=== PATIENT | female | born 1990 | race Caucasian/White ===

== ENCOUNTER → 2020-04-25 | Outpatient (CLI) | payer BC, OTHER ==
[2020-04-26 12:17] LABS: SARS-CoV-2 MS2 Positive; SARS-CoV-2 N Gene Negative; SARS-CoV-2 S Gene Negative; SARS-CoV-2 orf1ab Negative
== END ==
LOC: SCSLAB 11:51
PROVIDERS: ATTEND Obstetrics & Gynecology
DX: Z01.812 Encounter for preprocedural laboratory examination (principal); Z11.59 Encounter for screening for other viral diseases
CPT/HCPCS: 87635; U0003

== ENCOUNTER 2020-04-29 16:35 | Inpatient (IN) | payer BC ==
[~2020-04-29 16:35] MED LIST: Bupivacaine/Epinephrine 0.25% 30 ML VIAL ONE; EPHEDRINE 25 MG/5 ML SYRINGE ONE
[2020-04-29] MEDS ORDERED: Butorphanol Tartrate 1 MG/ML VIAL SLOW IVP PRN (20:14)
[2020-04-29] MEDS ORDERED: hydrALAZINE 20 MG/ML VIAL SLOW IVP PRN (20:14)
[2020-04-29] MEDS ORDERED: NS w/ Oxytocin 10 units 500 ML IV SCH ×2 (20:14)
[2020-04-29] MEDS ORDERED: Promethazine HCl 25 MG/ML VIAL IM PRN (20:14)
[2020-04-29] MEDS ORDERED: Ondansetron PF 4 MG/2 ML Vial IVP PRN (20:14)
[2020-04-29] MEDS ORDERED: HYDROcodone/Acetaminophen 5/325 mg Tablet PO PRN ×2 (20:14)
[2020-04-29] MEDS ORDERED: Lidocaine 1% (PF) 30 ML VIAL SC PRN (20:14)
[2020-04-29] MEDS ORDERED: NS / Oxytocin 40 units/1000ml 1,000 ML IV PRN (20:14)
[2020-04-29] MEDS ORDERED: Ibuprofen 800 MG TAB PO PRN (20:14)
[2020-04-29 22:18] LABS: Hemoglobin 13.4 g/dL (12.0-16.0); Mean Corpuscular HGB CONC 35.4 g/dL (32.0-36.0); Mean Corpuscular Hemoglobin 33.8 pg (27.0-31.0); Mean Corpuscular Volume 95.6 fL (78.0-98.0); Mean Platelet Volume 7.5 fL (7.4-10.4); Platelet Count 172 thou/uL (130-400); RBC Distribution Width 11.6 % (11.5-14.5); Red Blood Cell (RBC) Count 3.96 mill/uL (4.20-5.40); White Blood Cell (WBC) Count 12.2 thou/uL (4.8-10.8)
[2020-04-29 22:56] LABS: Syphilis Antibody Nonreactive (Nonreactive); Syphilis Antibody Index 0.04 S/CO (<1.00 Non-Reactive)
[2020-04-29 23:11] LABS: HBSAg Index 0.14 S/CO (0-0.99); Hep B Surf Ag Non-Reactive S/CO (NonReactive)
[2020-04-30 01:55] VITALS: BMI 31.6
[2020-04-30] MEDS ORDERED: Penicillin G Potassium 5 MILL.UNITS in Sodium Chloride 0.9% 100 ML IVPB SCH (02:00)
[2020-04-30] MEDS ORDERED: Penicillin G Potassium 5 MILL.UNITS VIAL ONE (02:04)
[2020-04-30] MEDS: Lactated Ringer's 1,000 ML IV SCH ×2 (02:20→03:40)
[2020-04-30] MEDS ORDERED: Misoprostol 100 MCG TAB VAG SCH (02:30)
[2020-04-30] MEDS ORDERED: Fentanyl 4 mcg/Bup 0.1% Cadd 100 ML ONE ×2 (02:30→10:48)
[2020-04-30] MEDS ORDERED: Lactated Ringer's 500 ML IV PRN (03:28)
[2020-04-30] MEDS ORDERED: Acetaminophen 325 MG TAB PO PRN (03:28)
[2020-04-30] MEDS ORDERED: Naloxone HCl 0.4 mg/ml Vial IVP PRN ×2 (03:28)
[2020-04-30] MEDS ORDERED: Ondansetron PF 4 MG/2 ML Vial IVP PRN ×2 (03:28→17:11)
[2020-04-30] MEDS ORDERED: EPHEDRINE 25 MG/5 ML SYRINGE SLOW IVP PRN (03:28)
[2020-04-30] MEDS ORDERED: diphenhydrAMINE 50 MG/ML VIAL IVP PRN (03:28)
[2020-04-30] MEDS ORDERED: Promethazine HCl 25 MG/ML VIAL IM PRN (03:28)
[2020-04-30] MEDS ORDERED: Communication Order-Pharmacy FS SCH (03:30)
[2020-04-30] MEDS ORDERED: Fentanyl 4 mcg/Bupivacaine 0.1% Cassette 100 ML EPIDURAL SCH (03:30)
[2020-04-30] MEDS: Misoprostol 100 MCG TAB VAG SCH ×2 (06:17→17:10)
[2020-04-30] MEDS: Penicillin G 2.5 MILL.units 2.5 MILL.UNITS in Premix Bag 1 BAG IVPB SCH ×3 (06:18→13:53)
--- NOTE | 2020-04-30 13:14 | PDOC.LDPN ---
Labor & Delivery Progress Note - Subjective Subjective: comfortable - Objective Vital signs reviewed and normal: yes Dilation: 9 Effacement: 100% Station: 2+ FHT: variable decelerations, variability present - Assessment (1) 40 weeks gestation of Code(s): Z3A.40 - 40 WEEKS GESTATION OF Current Visit: Yes Status : Acute Plan: continue plan of care -: A/P: Doing well, transitioning to 2nd stage soon.
--- NOTE | 2020-04-30 16:52 | PDOC.OPDEL ---
OB Operative/Delivery Note Delivery Dr/Surgeon: Pete Pre-Delivery Diagnosis: medically indicated induction (40.6 weeks) Procedure/Post Delivery Dx: spontaneous vaginal delivery Weeks gestation: 40 Anesthesia: epidural - Findings A Sex: male - Additional Findings/Plan Placenta delivered: spontaneous Repaired Obstetrical Laceration: left labial Estimated blood loss: 275ml Compilations/Other Findings: lose nuchal x 2 Post delivery plan: routine recovery
[2020-04-30] MEDS ORDERED: Preparation H Ointment 28 GM TUBE PR PRN (17:11)
[2020-04-30] MEDS ORDERED: NS / Oxytocin 40 units/1000ml 1,000 ML IV SCH (17:11)
[2020-04-30] MEDS ORDERED: Milk Of Magnesia 30 ML UDCUP PO PRN (17:11)
[2020-04-30] MEDS ORDERED: hydrALAZINE 20 MG/ML VIAL SLOW IVP PRN (17:11)
[2020-04-30] MEDS ORDERED: HYDROcodone/Acetaminophen 5/325 mg Tablet PO PRN ×2 (17:11)
[2020-04-30] MEDS ORDERED: diphenhydrAMINE 25 MG CAP PO PRN (17:11)
[2020-04-30] MEDS ORDERED: Benzocaine-Menthol 82.5 ML CAN TOP PRN (17:11)
[2020-04-30] MEDS ORDERED: Bisacodyl 10 MG SUPP PR PRN (17:11)
[2020-04-30] MEDS ORDERED: NS / Oxytocin 40 units/1000ml 0 ML ONE (20:16)
[2020-04-30] MEDS: Ibuprofen 800 MG TAB PO SCH (21:17)
[2020-04-30] MEDS: Docusate Calcium (SURFAK) 240 MG CAP PO SCH (21:17)
[2020-05-01] MEDS: Ibuprofen 800 MG TAB PO SCH ×3 (05:55→21:19)
--- NOTE | 2020-05-01 08:28 | PDOC.PP ---
Post Progress Note Post Day #: 1 Subjective: doing well, no concerns, desires DC home tomorrow PO intake tolerated: yes Flatus: yes Ambulation: yes Vital Signs (12 hours) Temp Pulse Resp BP Pulse Ox 05/01/20 08:23 97.7 F 88 20 92/53 L 97 05/01/20 05:45 98.0 F 85 18 98/54 L 97 05/01/20 00:00 98.3 F 85 18 101/54 L 98 Weight Weight 190 lb - Physical Examination General: NAD Respiratory: non-labored breathing Abdominal: no distention Fundus firm & at: below umb Neurological: no gross focal deficits Psychiatric: A&Ox3, normal affect Result Diagrams: 04/29/20 22:11 Additional Labs: Post Labs Blood Type O POSITIVE 04/30/20 01:01 Hep Bs Antigen Non-Reactive S/CO (NonReactive) 04/29/20 22:11 (1) 40 weeks gestation of Code(s): Z3A.40 - 40 WEEKS GESTATION OF Status: Acute (2) Vaginal delivery Code(s): O80 - ENCOUNTER FOR FULL-TERM UNCOMPLICATED DELIVERY Status: Acute - Assessment/Plan PPD1 doing well, plan for DC tomorrow am.
[2020-05-01] MEDS: Docusate Calcium (SURFAK) 240 MG CAP PO SCH ×2 (09:18→21:20)
[2020-05-01] MEDS: Prenatal Vitamin 1 TAB PO SCH (09:18)
[2020-05-01] MEDS: Ferrous Sulfate 325 MG TAB PO SCH ×3 (09:24→21:17)
[2020-05-01] MEDS ORDERED: Adacel (T-DAP) 0.5 ML SYRINGE IM ONE (17:11)
[2020-05-01] MEDS: Lactated Ringer's 1,000 ML IV SCH (21:37)
[2020-05-01] MEDS: Misoprostol 100 MCG TAB VAG SCH (21:37)
[2020-05-02] MEDS: Ibuprofen 800 MG TAB PO SCH ×2 (06:12→13:45)
[2020-05-02] MEDS: Ferrous Sulfate 325 MG TAB PO SCH ×2 (07:51→18:04)
[2020-05-02 08:09] VITALS: BP 92/50; TEMP 97.9
[2020-05-02] MEDS: Docusate Calcium (SURFAK) 240 MG CAP PO SCH (08:59)
[2020-05-02] MEDS: Prenatal Vitamin 1 TAB PO SCH (09:00)
--- NOTE | 2020-05-02 12:29 | PDOC.PP ---
Post Progress Note Post Day #: 2 PO intake tolerated: yes Flatus: yes Ambulation: yes Vital Signs (12 hours) Temp Pulse Resp BP Pulse Ox 05/02/20 08:08 97.9 F 76 20 92/50 L 97 Weight Weight 190 lb - Physical Examination General: NAD Respiratory: non-labored breathing Abdominal: no distention, appropriately TTP Fundus firm & at: umb-2 Neurological: no gross focal deficits Psychiatric: normal affect Result Diagrams: 04/29/20 22:11 Additional Labs: Post Labs Blood Type O POSITIVE 04/30/20 01:01 Hep Bs Antigen Non-Reactive S/CO (NonReactive) 04/29/20 22:11 - Assessment/Plan PPD2 s/p TSVD VSSAF Doing well, pain controlled, lochia appropriate Rh pos RImm DC home FU 6w
== END 2020-05-02 18:05 | disposition home or self-care (01) | DRG 807 ==
LOC: L&D-LIB 20:06 → 3SW 04-30 18:33
PROVIDERS: ADMIT Obstetrics & Gynecology; ATTEND Obstetrics & Gynecology
PROC: 10907ZC Drainage of Amniotic Fluid, Therapeutic from Products of Conception, Via Natural or Artificial Opening (ICD-10-PCS; 2020-04-29)
PROC: 3E033VJ Introduction of Other Hormone into Peripheral Vein, Percutaneous Approach (ICD-10-PCS; 2020-04-29)
PROC: 10E0XZZ Delivery of Products of Conception, External Approach (ICD-10-PCS; principal; 2020-04-30)
PROC: 0HQ9XZZ Repair Perineum Skin, External Approach (ICD-10-PCS; 2020-04-30)
DX: O69.81X0 Labor and delivery complicated by cord around neck, without compression, not applicable or unspecified (principal); Z37.0 Single live birth; Z3A.40 40 weeks gestation of pregnancy; O99.824 Streptococcus B carrier state complicating childbirth; O76 Abnormality in fetal heart rate and rhythm complicating labor and delivery; O70.0 First degree perineal laceration during delivery
CPT/HCPCS: 36415; 51702; 85027; 86780; 86850; 86900; 86901; 87340; J2540; J2590